=== PATIENT | female | born 1940 | race African-American/Black ===

== ENCOUNTER 2021-04-02 14:33 | Inpatient (IN) | payer OTHER ==
[2021-04-02 18:50] LABS: HEMATOCRIT 40.7 % (32.4-45.2); HEMOGLOBIN 13.3 GM/dL (10.7-15.3); MCHC 32.7 g/dl (32.0-36.0); MEAN PLT VOLUME 9.4 fl (7.5-11.1); PLATELET COUNT 135 10^3/uL (134-434); WHITE BLOOD COUNT 5.8 K/mm3 (4.0-10.0)
[2021-04-02 19:09] LABS: ALBUMIN 2.9 g/dl (3.4-5.0); BLOOD UREA NITROGEN 32.6 mg/dL (7-18); CALCIUM 8.9 mg/dL (8.5-10.1)
[2021-04-02 19:13] LABS: BILIRUBIN,TOTAL 0.3 mg/dL (0.2-1); CREATININE 1.7 mg/dL (0.55-1.3); TOT PROT 5.6 g/dl (6.4-8.2)
[2021-04-02 21:49] LABS: ANISOCYTOSIS 3+; MACROCYTOSIS 3+; OVALOCYTE 2+; PLATELET ESTIMATE DECREASED; TARGET CELLS 1+
[2021-04-03] MEDS ORDERED: ALBUTEROL SO4 2.5/IPRATROPIUM 0.5 INH SOL 3 ML VIAL.NEB. NEB PRN (00:56)
[2021-04-03] MEDS ORDERED: AZITHROMYCIN IVPB 500 MG/250 ML BAG IVPB ONE ×2 (00:58→02:13)
[2021-04-03] MEDS: methylPREDNISolone NA SUCC 40 MG/1 ML VIAL IVPUSH SCH ×4 (02:38→17:35)
[2021-04-03] MEDS: BUDESONIDE/FORMETEROL FUMARATE 160/4.5 mcg INHALER IH SCH ×3 (02:39→21:24)
[2021-04-03] MEDS: ALBUTEROL SO4 2.5/IPRATROPIUM 0.5 INH SOL 3 ML VIAL.NEB. NEB SCH ×3 (02:42→03:31)
[2021-04-03 03:28] LABS: EPI CELLS >36 /uL (0-25.1); HYALINE CASTS 3 /uL (0-3.1); URINE APPEARANCE CLOUDY; URINE BACTERIA 878 /uL (0-1359); URINE BILIRUBIN NEGATIVE (NEGATIVE); URINE COLOR YELLOW; URINE GLUCOSE (UA) NEGATIVE (NEGATIVE); URINE KETONE NEGATIVE (NEGATIVE); URINE LEUK ESTERASE 1+ (NEGATIVE); URINE NITRITE NEGATIVE (NEGATIVE); URINE PROTEIN NEGATIVE (NEGATIVE); URINE RBC 18 /uL (0-23.9); URINE UROBILINOGEN 0.2 mg/dL (0.2-1.0); URINE WBC 43 /uL (0-25.8)
[2021-04-03] MEDS ORDERED: ACETAMINOPHEN 1000 MG/100 ML VIAL IVPB PRN (03:46)
[2021-04-03] MEDS ORDERED: SODIUM CHLORIDE 1,000 ML IV SCH (04:00)
[2021-04-03] MEDS: HEPARIN NA (PORCINE) 5,000 UNITS/ML 1ML VIAL SQ SCH ×3 (08:50→21:24)
[2021-04-03] MEDS ORDERED: HEPARIN NA (PORCINE) 5,000 UNITS/ML 1ML VIAL ONE (08:51)
[2021-04-03] MEDS ORDERED: AZITHROMYCIN IVPB 250 MG/125 ML BAG IVPB SCH (10:00)
[2021-04-03] MEDS ORDERED: NICOTINE 14 MG/24 HOURS TOPICAL PATCH TD SCH (10:00)
[2021-04-03] MEDS ORDERED: AZITHROMYCIN IVPB 500 MG/250 ML BAG IVPB SCH (10:00)
[2021-04-03] MEDS: amLODIPine BESYLATE 2.5 MG TABLET (FP) PO SCH ×2 (11:09→11:15)
[2021-04-03] MEDS ORDERED: AZITHROMYCIN IVPB SCH (11:21)
[2021-04-03] MEDS ORDERED: DEXTROSE 5% IVPB SCH (11:21)
[2021-04-03] MEDS ORDERED: WATER IVPB SCH (11:21)
[2021-04-03] MEDS: DEXTROSE 5% IVPB SCH (11:57)
[2021-04-03] MEDS: AZITHROMYCIN IVPB SCH (11:57)
[2021-04-03] MEDS: WATER IVPB SCH (11:57)
[2021-04-03] MEDS: PANTOPRAZOLE 40 MG TABLET PO SCH (11:59)
[2021-04-03] MEDS: ASPIRIN/DIPYRIDAMOLE 25 MG/200 MG CAPSULE PO SCH ×2 (11:59→21:24)
[2021-04-03] MEDS ORDERED: PT OWN MED DRAWER 7, Y5N ONE ×2 (12:14→21:07)
[2021-04-03 13:35] LABS: ALBUMIN 2.8 g/dl (3.4-5.0); BLOOD UREA NITROGEN 27.9 mg/dL (7-18); CALCIUM 8.4 mg/dL (8.5-10.1); CREATININE 1.6 mg/dL (0.55-1.3); MAGNESIUM 2.2 mg/dL (1.8-2.4); PHOSPHOROUS 2.7 mg/dL (2.5-4.9); TOT PROT 5.4 g/dl (6.4-8.2)
[2021-04-03 13:36] LABS: BILIRUBIN,TOTAL 0.2 mg/dL (0.2-1)
[2021-04-03] MEDS ORDERED: ALBUTEROL SO4 0.083% IH SOL 2.5 MG/3 ML VIAL.NEB. NEB PRN (16:14)
[2021-04-03] MEDS: ZINC OXIDE/PETROLATUM,WHITE 1 APPLIC OINT...G. TP PRN (17:50)
[2021-04-04] MEDS: methylPREDNISolone NA SUCC 40 MG/1 ML VIAL IVPUSH SCH ×4 (02:09→21:09)
[2021-04-04] MEDS: HEPARIN NA (PORCINE) 5,000 UNITS/ML 1ML VIAL SQ SCH ×3 (05:21→21:08)
[2021-04-04 08:44] LABS: HEMATOCRIT 38.9 % (32.4-45.2); HEMOGLOBIN 12.8 GM/dL (10.7-15.3); MCH 37.2 pg (25.7-33.7); MCHC 32.8 g/dl (32.0-36.0); MEAN CELL VOLUME 113.4 fl (80-96); MEAN PLT VOLUME 8.7 fl (7.5-11.1); PLATELET COUNT 145 10^3/uL (134-434); RBC 3.43 M/mm3 (3.60-5.2); RDW 19.4 % (11.6-15.6); WHITE BLOOD COUNT 14.6 K/mm3 (4.0-10.0)
[2021-04-04 09:31] LABS: ANISOCYTOSIS 2+; MACROCYTOSIS 2+; PLATELET ESTIMATE DECREASED
[2021-04-04] MEDS ORDERED: WATER IVPB SCH (10:00)
[2021-04-04] MEDS ORDERED: AZITHROMYCIN IVPB SCH (10:00)
[2021-04-04] MEDS ORDERED: DEXTROSE 5% IVPB SCH (10:00)
[2021-04-04] MEDS ORDERED: PT OWN MED DRAWER 7, Y5N ONE ×3 (10:04→21:03)
[2021-04-04] MEDS: amLODIPine BESYLATE 2.5 MG TABLET (FP) PO SCH (10:07)
[2021-04-04] MEDS: ASPIRIN/DIPYRIDAMOLE 25 MG/200 MG CAPSULE PO SCH ×2 (10:07→21:07)
[2021-04-04] MEDS: PANTOPRAZOLE 40 MG TABLET PO SCH (10:07)
[2021-04-04] MEDS: FLUTICASONE/UMECLIDIN/VILANTER(200-62.5-25 TRELEGY ELLIPTA) INAHLER IH SCH (10:23)
[2021-04-04] MEDS: ZINC OXIDE/PETROLATUM,WHITE 1 APPLIC OINT...G. TP PRN (10:33)
[2021-04-04] MEDS: WATER IVPB SCH (10:51)
[2021-04-04] MEDS: DEXTROSE 5% IVPB SCH (10:51)
[2021-04-04] MEDS: AZITHROMYCIN IVPB SCH (10:51)
[2021-04-04 12:23] LABS: ALBUMIN 2.6 g/dl (3.4-5.0); BILIRUBIN,TOTAL 0.4 mg/dL (0.2-1); BLOOD UREA NITROGEN 24.5 mg/dL (7-18); CALCIUM 8.6 mg/dL (8.5-10.1); CREATININE 1.3 mg/dL (0.55-1.3); MAGNESIUM 2.3 mg/dL (1.8-2.4); TOT PROT 5.2 g/dl (6.4-8.2)
[2021-04-04] MEDS ORDERED: DEXTROSE 5%-WATER - 50 ML IVPB ONE (13:20)
[2021-04-04] MEDS ORDERED: cefTRIAXone SODIUM 1 GM VIAL ONE (13:20)
[2021-04-04] MEDS: CEFTRIAXONE 1 GM in DEXTROSE 5%-WATER - 50 ML IVPB SCH (13:21)
[2021-04-04] MEDS: INSULIN SLIDING SCALE (NOVOLOG) 1 VIAL SQ SCH ×2 (15:38→21:45)
[2021-04-05] MEDS: methylPREDNISolone NA SUCC 40 MG/1 ML VIAL IVPUSH SCH ×4 (03:15→21:03)
[2021-04-05] MEDS: HEPARIN NA (PORCINE) 5,000 UNITS/ML 1ML VIAL SQ SCH ×3 (05:55→21:04)
[2021-04-05] MEDS: INSULIN SLIDING SCALE (NOVOLOG) 1 VIAL SQ SCH ×4 (06:01→21:15)
[2021-04-05 08:50] LABS: HEMATOCRIT 38.5 % (32.4-45.2); HEMOGLOBIN 12.7 GM/dL (10.7-15.3); MEAN CELL VOLUME 112.1 fl (80-96); MEAN PLT VOLUME 9.6 fl (7.5-11.1); PLATELET COUNT 179 10^3/uL (134-434); RBC 3.43 M/mm3 (3.60-5.2); RDW 19.7 % (11.6-15.6); WHITE BLOOD COUNT 23.8 K/mm3 (4.0-10.0)
[2021-04-05] MEDS ORDERED: cefTRIAXone SODIUM 1 GM VIAL ONE (10:03)
[2021-04-05] MEDS ORDERED: DEXTROSE 5%-WATER - 50 ML IVPB ONE (10:04)
[2021-04-05] MEDS: PANTOPRAZOLE 40 MG TABLET PO SCH (10:11)
[2021-04-05] MEDS: amLODIPine BESYLATE 2.5 MG TABLET (FP) PO SCH (10:11)
[2021-04-05] MEDS: ASPIRIN/DIPYRIDAMOLE 25 MG/200 MG CAPSULE PO SCH ×2 (10:12→21:06)
[2021-04-05] MEDS: FLUTICASONE/UMECLIDIN/VILANTER(200-62.5-25 TRELEGY ELLIPTA) INAHLER IH SCH (10:12)
[2021-04-05] MEDS: CEFTRIAXONE 1 GM in DEXTROSE 5%-WATER - 50 ML IVPB SCH (10:12)
[2021-04-05 10:35] LABS: ALBUMIN 2.7 g/dl (3.4-5.0); BILIRUBIN,TOTAL 0.3 mg/dL (0.2-1); BLOOD UREA NITROGEN 28.8 mg/dL (7-18); CALCIUM 8.9 mg/dL (8.5-10.1); CREATININE 1.4 mg/dL (0.55-1.3); MAGNESIUM 2.3 mg/dL (1.8-2.4); TOT PROT 5.3 g/dl (6.4-8.2)
[2021-04-05 10:43] LABS: ANISOCYTOSIS 2+; MACROCYTOSIS 0; OVALOCYTE 1+; PLATELET ESTIMATE NORMAL; TARGET CELLS 2+
[2021-04-05] MEDS ORDERED: INSULIN (NOVOLOG) ASPART 100 UNITS/ML 10ML VIAL ONE (13:22)
[2021-04-05] MEDS ORDERED: PT OWN MED DRAWER 7, Y5N ONE (20:54)
[2021-04-06] MEDS: methylPREDNISolone NA SUCC 40 MG/1 ML VIAL IVPUSH SCH ×4 (02:31→21:16)
[2021-04-06] MEDS: HEPARIN NA (PORCINE) 5,000 UNITS/ML 1ML VIAL SQ SCH ×3 (05:26→21:16)
[2021-04-06] MEDS: INSULIN SLIDING SCALE (NOVOLOG) 1 VIAL SQ SCH ×4 (06:03→21:21)
[2021-04-06] MEDS ORDERED: PT OWN MED DRAWER 7, Y5N ONE ×4 (10:08→21:13)
[2021-04-06] MEDS ORDERED: DEXTROSE 5%-WATER - 50 ML IVPB ONE (10:09)
[2021-04-06] MEDS ORDERED: cefTRIAXone SODIUM 1 GM VIAL ONE (10:09)
[2021-04-06] MEDS: amLODIPine BESYLATE 2.5 MG TABLET (FP) PO SCH (10:11)
[2021-04-06] MEDS: CEFTRIAXONE 1 GM in DEXTROSE 5%-WATER - 50 ML IVPB SCH (10:11)
[2021-04-06] MEDS: ASPIRIN/DIPYRIDAMOLE 25 MG/200 MG CAPSULE PO SCH ×2 (10:11→21:16)
[2021-04-06] MEDS: FLUTICASONE/UMECLIDIN/VILANTER(200-62.5-25 TRELEGY ELLIPTA) INAHLER IH SCH (10:11)
[2021-04-06] MEDS: PANTOPRAZOLE 40 MG TABLET PO SCH (10:11)
[2021-04-06] MEDS ORDERED: POLYETHYLENE GLYCOL 3350 119 GM BTL PO SCH (11:00)
[2021-04-06 11:31] LABS: HEMATOCRIT 35.4 % (32.4-45.2); HEMOGLOBIN 11.5 GM/dL (10.7-15.3); MCH 36.1 pg (25.7-33.7); MCHC 32.4 g/dl (32.0-36.0); MEAN CELL VOLUME 111.4 fl (80-96); MEAN PLT VOLUME 9.3 fl (7.5-11.1); PLATELET COUNT 173 10^3/uL (134-434); RBC 3.18 M/mm3 (3.60-5.2)
[2021-04-06] MEDS: POLYETHYLENE GLYCOL (HEALTHYLAX) 3350 17 GM PACKET PO SCH (11:58)
[2021-04-06] MEDS ORDERED: PATIENT'S OWN MEDICATION (NON-FORMULARY) (Raloxifene Hcl [Raloxifene Hcl] 60 MG Tablet) PO SCH (12:45)
[2021-04-06] MEDS: FOLIC ACID 1 MG TABLET (FP) PO SCH (13:37)
[2021-04-06] MEDS: CHOLECALCIFEROL (VIT D3) 1,000 UNIT (25 MCG) TABLET PO SCH (13:37)
[2021-04-06] MEDS: DOCUSATE SODIUM 100 MG CAPSULE (FP) PO SCH ×2 (13:37→21:16)
[2021-04-06 14:10] LABS: ALBUMIN 2.3 g/dl (3.4-5.0); BILIRUBIN,TOTAL 0.2 mg/dL (0.2-1); BLOOD UREA NITROGEN 47.5 mg/dL (7-18); CALCIUM 8.8 mg/dL (8.5-10.1); CREATININE 1.5 mg/dL (0.55-1.3); MAGNESIUM 2.3 mg/dL (1.8-2.4); TOT PROT 4.8 g/dl (6.4-8.2)
[2021-04-06 15:04] LABS: ANISOCYTOSIS 1+; MACROCYTOSIS 0; OVALOCYTE 1+; PLATELET ESTIMATE NORMAL; TARGET CELLS 1+
[2021-04-06] MEDS ORDERED: LATANOPROST 0.005% OPHTH SOLN 2.5ML BOTTLE OU SCH (22:00)
[2021-04-06] MEDS: LATANOPROST 0.005% OPHTH SOLN 2.5ML BOTTLE OU SCH (22:00)
[2021-04-07] MEDS: methylPREDNISolone NA SUCC 40 MG/1 ML VIAL IVPUSH SCH ×4 (02:08→22:11)
[2021-04-07] MEDS: DOCUSATE SODIUM 100 MG CAPSULE (FP) PO SCH ×3 (05:37→22:12)
[2021-04-07] MEDS: HEPARIN NA (PORCINE) 5,000 UNITS/ML 1ML VIAL SQ SCH ×3 (05:37→22:11)
[2021-04-07] MEDS: INSULIN SLIDING SCALE (NOVOLOG) 1 VIAL SQ SCH ×4 (06:04→22:22)
[2021-04-07] MEDS ORDERED: DEXTROSE 5%-WATER - 50 ML IVPB ONE ×2 (10:03→18:20)
[2021-04-07] MEDS ORDERED: cefTRIAXone SODIUM 1 GM VIAL ONE (10:03)
[2021-04-07] MEDS: FOLIC ACID 1 MG TABLET (FP) PO SCH (10:06)
[2021-04-07] MEDS: CHOLECALCIFEROL (VIT D3) 1,000 UNIT (25 MCG) TABLET PO SCH (10:06)
[2021-04-07] MEDS: PANTOPRAZOLE 40 MG TABLET PO SCH (10:06)
[2021-04-07] MEDS: CEFTRIAXONE 1 GM in DEXTROSE 5%-WATER - 50 ML IVPB SCH (10:06)
[2021-04-07] MEDS: amLODIPine BESYLATE 2.5 MG TABLET (FP) PO SCH (10:06)
[2021-04-07] MEDS: POLYETHYLENE GLYCOL (HEALTHYLAX) 3350 17 GM PACKET PO SCH (10:06)
[2021-04-07] MEDS: ASPIRIN/DIPYRIDAMOLE 25 MG/200 MG CAPSULE PO SCH ×2 (10:07→22:13)
[2021-04-07] MEDS: PATIENT'S OWN MEDICATION (NON-FORMULARY) (Raloxifene Hcl [Raloxifene Hcl] 60 MG Tablet) PO SCH (10:07)
[2021-04-07] MEDS: FLUTICASONE/UMECLIDIN/VILANTER(200-62.5-25 TRELEGY ELLIPTA) INAHLER IH SCH (10:07)
[2021-04-07 11:59] LABS: HEMATOCRIT 35.8 % (32.4-45.2); HEMOGLOBIN 11.5 GM/dL (10.7-15.3); MCH 36.2 pg (25.7-33.7); MCHC 32.3 g/dl (32.0-36.0); MEAN CELL VOLUME 112.1 fl (80-96); MEAN PLT VOLUME 9.6 fl (7.5-11.1); PLATELET COUNT 174 10^3/uL (134-434); RBC 3.19 M/mm3 (3.60-5.2)
[2021-04-07] MEDS ORDERED: LACTATED RINGERS SOLUTION 1,000 ML/1,000 ML INFUS.BAG IV SCH (12:00)
[2021-04-07] MEDS ORDERED: ALBUTEROL SO4 2.5/IPRATROPIUM 0.5 INH SOL 3 ML VIAL.NEB. NEB SCH (12:00)
[2021-04-07 12:04] LABS: WHITE BLOOD COUNT 31.3 K/mm3 (4.0-10.0)
[2021-04-07 12:19] LABS: CALCIUM 8.9 mg/dL (8.5-10.1)
[2021-04-07 12:20] LABS: ALBUMIN 2.4 g/dl (3.4-5.0); BLOOD UREA NITROGEN 48.7 mg/dL (7-18); MAGNESIUM 2.5 mg/dL (1.8-2.4)
[2021-04-07 12:23] LABS: CREATININE 1.5 mg/dL (0.55-1.3)
[2021-04-07 12:25] LABS: BILIRUBIN,TOTAL 0.2 mg/dL (0.2-1); TOT PROT 4.9 g/dl (6.4-8.2)
[2021-04-07 13:46] LABS: ANISOCYTOSIS 3+; MACROCYTOSIS 2+; OVALOCYTE 1+; PLATELET ESTIMATE NORMAL
[2021-04-07 15:33] LABS: LACTIC ACID 5.1 mmol/L (0.4-2.0)
[2021-04-07] MEDS ORDERED: SODIUM CHLORIDE 1,000 ML IV STA (15:53)
[2021-04-07] MEDS: ALBUTEROL SO4 0.083% IH SOL 2.5 MG/3 ML VIAL.NEB. NEB SCH ×2 (16:15→20:05)
[2021-04-07] MEDS ORDERED: PIPERACILLIN/TAZOB 2.25 GM 2.25 GM in DEXTROSE 5%-WATER - 50 ML IVPB ONE (16:44)
[2021-04-07] MEDS ORDERED: PIPERACILLIN/TAZOBACTAM 2.25 GM VIAL IVPB ONE (18:20)
[2021-04-07] MEDS ORDERED: PT OWN MED DRAWER 7, Y5N ONE (22:05)
[2021-04-07] MEDS: LATANOPROST 0.005% OPHTH SOLN 2.5ML BOTTLE OU SCH (22:12)
[2021-04-07 23:54] LABS: LACTIC ACID 3.9 mmol/L (0.4-2.0)
[2021-04-08] MEDS: methylPREDNISolone NA SUCC 40 MG/1 ML VIAL IVPUSH SCH ×3 (02:55→18:35)
[2021-04-08] MEDS: HEPARIN NA (PORCINE) 5,000 UNITS/ML 1ML VIAL SQ SCH (06:26)
[2021-04-08] MEDS: DOCUSATE SODIUM 100 MG CAPSULE (FP) PO SCH ×3 (06:26→22:48)
[2021-04-08] MEDS: INSULIN SLIDING SCALE (NOVOLOG) 1 VIAL SQ SCH ×4 (06:27→22:58)
[2021-04-08] MEDS: ALBUTEROL SO4 0.083% IH SOL 2.5 MG/3 ML VIAL.NEB. NEB SCH ×3 (07:35→15:19)
[2021-04-08] MEDS ORDERED: cefTRIAXone SODIUM 1 GM VIAL ONE (09:40)
[2021-04-08] MEDS ORDERED: DEXTROSE 5%-WATER - 50 ML IVPB ONE (09:40)
[2021-04-08] MEDS: CHOLECALCIFEROL (VIT D3) 1,000 UNIT (25 MCG) TABLET PO SCH (09:43)
[2021-04-08] MEDS: PANTOPRAZOLE 40 MG TABLET PO SCH (09:43)
[2021-04-08] MEDS: ASPIRIN/DIPYRIDAMOLE 25 MG/200 MG CAPSULE PO SCH (09:43)
[2021-04-08] MEDS: FOLIC ACID 1 MG TABLET (FP) PO SCH (09:43)
[2021-04-08] MEDS: amLODIPine BESYLATE 2.5 MG TABLET (FP) PO SCH (09:43)
[2021-04-08] MEDS: CEFTRIAXONE 1 GM in DEXTROSE 5%-WATER - 50 ML IVPB SCH (09:43)
[2021-04-08] MEDS: PATIENT'S OWN MEDICATION (NON-FORMULARY) (Raloxifene Hcl [Raloxifene Hcl] 60 MG Tablet) PO SCH (09:43)
[2021-04-08] MEDS: POLYETHYLENE GLYCOL (HEALTHYLAX) 3350 17 GM PACKET PO SCH (09:50)
[2021-04-08] MEDS: FLUTICASONE/UMECLIDIN/VILANTER(200-62.5-25 TRELEGY ELLIPTA) INAHLER IH SCH (09:50)
[2021-04-08 10:50] LABS: ALBUMIN 2.3 g/dl (3.4-5.0); BILIRUBIN,TOTAL 0.2 mg/dL (0.2-1); BLOOD UREA NITROGEN 43.6 mg/dL (7-18); CALCIUM 8.8 mg/dL (8.5-10.1); CREATININE 1.7 mg/dL (0.55-1.3); MAGNESIUM 2.5 mg/dL (1.8-2.4); TOT PROT 4.7 g/dl (6.4-8.2)
[2021-04-08 11:11] LABS: HEMATOCRIT 33.9 % (32.4-45.2); MCH 36.4 pg (25.7-33.7); MCHC 32.4 g/dl (32.0-36.0); MEAN CELL VOLUME 112.4 fl (80-96); MEAN PLT VOLUME 9.9 fl (7.5-11.1); PLATELET COUNT 165 10^3/uL (134-434); RBC 3.02 M/mm3 (3.60-5.2); RDW 20.4 % (11.6-15.6)
[2021-04-08 11:15] LABS: WHITE BLOOD COUNT 32.5 K/mm3 (4.0-10.0)
[2021-04-08] MEDS ORDERED: FUROSEMIDE 40 MG/4 ML INJECTABLE VIAL IVPUSH SCH (11:30)
[2021-04-08] MEDS ORDERED: PANTOPRAZOLE SODIUM 40 MG in SODIUM CHLORIDE 100 ML IVPUSH ONE (11:36)
[2021-04-08] MEDS ORDERED: SODIUM CHLORIDE 1,000 ML IV SCH (11:45)
[2021-04-08] MEDS ORDERED: PANTOPRAZOLE SODIUM 40 MG VIAL IVPB ONE (11:45)
[2021-04-08] MEDS: SODIUM ZIRCONIUM CYCLOSILICATE (LOKELMA) 5 GM PACKET PO SCH (12:00)
[2021-04-08 12:31] LABS: ANISOCYTOSIS 3+; MACROCYTOSIS 2+; PLATELET ESTIMATE NORMAL
[2021-04-08 14:39] LABS: HEMATOCRIT 30.7 % (32.4-45.2); HEMOGLOBIN 9.9 GM/dL (10.7-15.3); MCH 36.2 pg (25.7-33.7); MCHC 32.3 g/dl (32.0-36.0); MEAN CELL VOLUME 112.1 fl (80-96); MEAN PLT VOLUME 9.6 fl (7.5-11.1); PLATELET COUNT 145 10^3/uL (134-434); RBC 2.74 M/mm3 (3.60-5.2); RDW 20.1 % (11.6-15.6); WHITE BLOOD COUNT 28.2 K/mm3 (4.0-10.0)
[2021-04-08 14:52] LABS: CALCIUM 7.5 mg/dL (8.5-10.1)
[2021-04-08 14:53] LABS: BLOOD UREA NITROGEN 39.5 mg/dL (7-18); MAGNESIUM 2.1 mg/dL (1.8-2.4)
[2021-04-08 14:56] LABS: CREATININE 1.5 mg/dL (0.55-1.3)
[2021-04-08 14:57] LABS: BILIRUBIN,TOTAL 0.2 mg/dL (0.2-1); TOT PROT 4.2 g/dl (6.4-8.2)
[2021-04-08 15:02] LABS: ALBUMIN 1.8 g/dl (3.4-5.0); LACTIC ACID 4.6 mmol/L (0.4-2.0)
[2021-04-08 15:57] LABS: ANISOCYTOSIS 1+; MACROCYTOSIS 1+; OVALOCYTE 1+; PLATELET ESTIMATE DECREASED
[2021-04-08 18:27] LABS: EPI CELLS >36 /uL (0-25.1); HYALINE CASTS 4 /uL (0-3.1); URINE APPEARANCE CLOUDY; URINE BACTERIA 150 /uL (0-1359); URINE BILIRUBIN NEGATIVE (NEGATIVE); URINE COLOR YELLOW; URINE GLUCOSE (UA) NEGATIVE (NEGATIVE); URINE KETONE NEGATIVE (NEGATIVE); URINE LEUK ESTERASE 2+ (NEGATIVE); URINE NITRITE NEGATIVE (NEGATIVE); URINE PROTEIN NEGATIVE (NEGATIVE); URINE RBC 27 /uL (0-23.9); URINE UROBILINOGEN 0.2 mg/dL (0.2-1.0); URINE WBC 316 /uL (0-25.8)
[2021-04-08] MEDS: PANTOPRAZOLE SODIUM 80 MG in SODIUM CHLORIDE 100 ML IVPB SCH ×2 (18:35→21:45)
[2021-04-08 19:15] LABS: YEAST MANY (NEGATIVE)
[2021-04-08] MEDS: SODIUM CHLORIDE 0.45% 1,000 ML IV SCH (21:44)
[2021-04-08] MEDS ORDERED: MUPIROCIN 2% TOPICAL OINTMENT FOR DECOLONIZATION NS SCH (22:00)
[2021-04-08] MEDS ORDERED: CHLORHEXIDINE GLUCONATE 4% CLEANSER FOR DECOLONIZATION TP SCH (22:00)
[2021-04-08 22:22] LABS: HEMATOCRIT 31.3 % (32.4-45.2); HEMOGLOBIN 10.1 GM/dL (10.7-15.3); MCH 36.3 pg (25.7-33.7); MCHC 32.4 g/dl (32.0-36.0); MEAN CELL VOLUME 112.1 fl (80-96); MEAN PLT VOLUME 9.7 fl (7.5-11.1); PLATELET COUNT 150 10^3/uL (134-434); RBC 2.79 M/mm3 (3.60-5.2); RDW 20.4 % (11.6-15.6); WHITE BLOOD COUNT 29.2 K/mm3 (4.0-10.0)
[2021-04-08 22:29] LABS: INR 1.01 (0.83-1.09); PROTHROMBIN TIME (PATIENT) 11.8 SEC (9.7-13.0)
[2021-04-08 22:40] LABS: BLOOD UREA NITROGEN 44.8 mg/dL (7-18); MAGNESIUM 2.6 mg/dL (1.8-2.4)
[2021-04-08 22:43] LABS: CREATININE 1.6 mg/dL (0.55-1.3)
[2021-04-08 22:45] LABS: BILIRUBIN,TOTAL 0.2 mg/dL (0.2-1); TOT PROT 4.5 g/dl (6.4-8.2)
[2021-04-08] MEDS: CHLORHEXIDINE GLUCONATE 4% CLEANSER FOR DECOLONIZATION TP SCH (22:45)
[2021-04-08] MEDS: MUPIROCIN 2% TOPICAL OINTMENT FOR DECOLONIZATION NS SCH (22:45)
[2021-04-08] MEDS: LATANOPROST 0.005% OPHTH SOLN 2.5ML BOTTLE OU SCH (22:52)
[2021-04-08 22:59] LABS: ALBUMIN 2.2 g/dl (3.4-5.0); CALCIUM 8.7 mg/dL (8.5-10.1); LACTIC ACID 3.4 mmol/L (0.4-2.0)
[2021-04-09] MEDS: ALBUTEROL SO4 0.083% IH SOL 2.5 MG/3 ML VIAL.NEB. NEB SCH ×5 (00:39→19:55)
[2021-04-09] MEDS: methylPREDNISolone NA SUCC 40 MG/1 ML VIAL IVPUSH SCH ×3 (01:08→17:02)
[2021-04-09] MEDS: DOCUSATE SODIUM 100 MG CAPSULE (FP) PO SCH ×3 (06:19→21:18)
[2021-04-09] MEDS: INSULIN SLIDING SCALE (NOVOLOG) 1 VIAL SQ SCH ×4 (06:20→21:26)
[2021-04-09] MEDS: PANTOPRAZOLE SODIUM 80 MG in SODIUM CHLORIDE 100 ML IVPB SCH (06:21)
[2021-04-09 07:44] LABS: HEMATOCRIT 29.9 % (32.4-45.2); HEMOGLOBIN 9.9 GM/dL (10.7-15.3); MCH 37.4 pg (25.7-33.7); MEAN CELL VOLUME 113.5 fl (80-96); MEAN PLT VOLUME 10.8 fl (7.5-11.1); PLATELET COUNT 130 10^3/uL (134-434); RBC 2.63 M/mm3 (3.60-5.2); RDW 20.8 % (11.6-15.6); WHITE BLOOD COUNT 27.4 K/mm3 (4.0-10.0)
[2021-04-09 08:37] LABS: CALCIUM 8.3 mg/dL (8.5-10.1)
[2021-04-09 08:38] LABS: ALBUMIN 2.2 g/dl (3.4-5.0); BLOOD UREA NITROGEN 41.3 mg/dL (7-18); MAGNESIUM 2.5 mg/dL (1.8-2.4)
[2021-04-09 08:41] LABS: BILIRUBIN,TOTAL 0.2 mg/dL (0.2-1); CREATININE 1.5 mg/dL (0.55-1.3); TOT PROT 4.5 g/dl (6.4-8.2)
[2021-04-09 09:00] LABS: ANISOCYTOSIS 1+; MACROCYTOSIS 0; OVALOCYTE 1+; PLATELET ESTIMATE DECREASED; TOXIC GRANULATION 2+
[2021-04-09] MEDS ORDERED: cefTRIAXone SODIUM 1 GM VIAL ONE (09:37)
[2021-04-09] MEDS ORDERED: DEXTROSE 5%-WATER - 50 ML IVPB ONE (09:37)
[2021-04-09] MEDS: FOLIC ACID 1 MG TABLET (FP) PO SCH (10:02)
[2021-04-09] MEDS: POLYETHYLENE GLYCOL (HEALTHYLAX) 3350 17 GM PACKET PO SCH (10:02)
[2021-04-09] MEDS: PANTOPRAZOLE 40 MG TABLET PO SCH ×2 (10:03→21:18)
[2021-04-09] MEDS: SODIUM ZIRCONIUM CYCLOSILICATE (LOKELMA) 5 GM PACKET PO SCH (10:03)
[2021-04-09] MEDS: CEFTRIAXONE 1 GM in DEXTROSE 5%-WATER - 50 ML IVPB SCH (10:03)
[2021-04-09] MEDS: CHOLECALCIFEROL (VIT D3) 1,000 UNIT (25 MCG) TABLET PO SCH (10:04)
[2021-04-09] MEDS: MULTIVITAMINS (DAILY MVI) TABLET (FP) PO SCH (10:04)
[2021-04-09] MEDS: MUPIROCIN 2% TOPICAL OINTMENT FOR DECOLONIZATION NS SCH ×2 (10:19→21:19)
[2021-04-09] MEDS ORDERED: PT OWN MED DRAWER 7, Y5N ONE ×2 (11:17→11:26)
[2021-04-09] MEDS: FLUTICASONE/UMECLIDIN/VILANTER(200-62.5-25 TRELEGY ELLIPTA) INAHLER IH SCH (11:19)
[2021-04-09] MEDS: amLODIPine BESYLATE 2.5 MG TABLET (FP) PO SCH (11:19)
[2021-04-09] MEDS: PATIENT'S OWN MEDICATION (NON-FORMULARY) (Raloxifene Hcl [Raloxifene Hcl] 60 MG Tablet) PO SCH (11:19)
[2021-04-09] MEDS: SODIUM CHLORIDE 0.45% 1,000 ML IV SCH ×2 (17:02→21:19)
[2021-04-09] MEDS: CHLORHEXIDINE GLUCONATE 4% CLEANSER FOR DECOLONIZATION TP SCH (21:19)
[2021-04-09] MEDS: LATANOPROST 0.005% OPHTH SOLN 2.5ML BOTTLE OU SCH (21:25)
[2021-04-10] MEDS: PANTOPRAZOLE SODIUM 80 MG in SODIUM CHLORIDE 100 ML IVPB SCH (00:13)
[2021-04-10] MEDS: methylPREDNISolone NA SUCC 40 MG/1 ML VIAL IVPUSH SCH ×3 (01:23→22:07)
[2021-04-10] MEDS: INSULIN SLIDING SCALE (NOVOLOG) 1 VIAL SQ SCH ×4 (06:10→22:13)
[2021-04-10] MEDS: DOCUSATE SODIUM 100 MG CAPSULE (FP) PO SCH ×4 (06:12→22:16)
[2021-04-10 07:10] LABS: HEMATOCRIT 27.4 % (32.4-45.2); MCH 36.8 pg (25.7-33.7); MCHC 32.8 g/dl (32.0-36.0); MEAN CELL VOLUME 112.2 fl (80-96); MEAN PLT VOLUME 10.3 fl (7.5-11.1); PLATELET COUNT 128 10^3/uL (134-434); RBC 2.44 M/mm3 (3.60-5.2); RDW 20.1 % (11.6-15.6); WHITE BLOOD COUNT 21.7 K/mm3 (4.0-10.0)
[2021-04-10 07:28] LABS: BLOOD UREA NITROGEN 31.2 mg/dL (7-18); CALCIUM 7.9 mg/dL (8.5-10.1); MAGNESIUM 2.5 mg/dL (1.8-2.4)
[2021-04-10 07:31] LABS: CREATININE 1.2 mg/dL (0.55-1.3); PHOSPHOROUS 3.6 mg/dL (2.5-4.9)
[2021-04-10 07:32] LABS: BILIRUBIN,TOTAL 0.2 mg/dL (0.2-1)
[2021-04-10 07:33] LABS: TOT PROT 4.3 g/dl (6.4-8.2)
[2021-04-10] MEDS: ALBUTEROL SO4 0.083% IH SOL 2.5 MG/3 ML VIAL.NEB. NEB SCH ×4 (08:34→20:20)
[2021-04-10 09:00] LABS: ANISOCYTOSIS 1+; MACROCYTOSIS 1+; OVALOCYTE 1+; PLATELET ESTIMATE DECREASED
[2021-04-10] MEDS ORDERED: cefTRIAXone SODIUM 1 GM VIAL ONE (09:30)
[2021-04-10] MEDS ORDERED: DEXTROSE 5%-WATER - 50 ML IVPB ONE (09:30)
[2021-04-10] MEDS: CEFTRIAXONE 1 GM in DEXTROSE 5%-WATER - 50 ML IVPB SCH (09:34)
[2021-04-10] MEDS: MUPIROCIN 2% TOPICAL OINTMENT FOR DECOLONIZATION NS SCH (10:00)
[2021-04-10] MEDS ORDERED: PT OWN MED DRAWER 7, Y5N ONE ×3 (11:45→12:09)
[2021-04-10] MEDS: FOLIC ACID 1 MG TABLET (FP) PO SCH (11:51)
[2021-04-10] MEDS: FLUTICASONE/UMECLIDIN/VILANTER(200-62.5-25 TRELEGY ELLIPTA) INAHLER IH SCH (11:51)
[2021-04-10] MEDS: CHOLECALCIFEROL (VIT D3) 1,000 UNIT (25 MCG) TABLET PO SCH (11:51)
[2021-04-10] MEDS: PATIENT'S OWN MEDICATION (NON-FORMULARY) (Raloxifene Hcl [Raloxifene Hcl] 60 MG Tablet) PO SCH (11:53)
[2021-04-10] MEDS: PANTOPRAZOLE 40 MG TABLET PO SCH (11:53)
[2021-04-10] MEDS: MULTIVITAMINS (DAILY MVI) TABLET (FP) PO SCH (11:53)
[2021-04-10] MEDS: SODIUM ZIRCONIUM CYCLOSILICATE (LOKELMA) 5 GM PACKET PO SCH (11:54)
[2021-04-10] MEDS: amLODIPine BESYLATE 2.5 MG TABLET (FP) PO SCH (11:54)
[2021-04-10] MEDS: POLYETHYLENE GLYCOL (HEALTHYLAX) 3350 17 GM PACKET PO SCH (11:56)
[2021-04-10] MEDS: SODIUM CHLORIDE 0.45% 1,000 ML IV SCH (15:00)
[2021-04-10] MEDS ORDERED: SODIUM CHLORIDE 0.45% 1,000 ML IV SCH (21:05)
[2021-04-10] MEDS ORDERED: ALBUTEROL SO4 0.083% IH SOL 2.5 MG/3 ML VIAL.NEB. NEB PRN (21:05)
[2021-04-10] MEDS ORDERED: ZINC OXIDE/PETROLATUM,WHITE 1 APPLIC OINT...G. TP PRN (21:05)
[2021-04-10] MEDS: LATANOPROST 0.005% OPHTH SOLN 2.5ML BOTTLE OU SCH (22:12)
[2021-04-11] MEDS: DOCUSATE SODIUM 100 MG CAPSULE (FP) PO SCH ×3 (06:06→21:12)
[2021-04-11] MEDS: INSULIN SLIDING SCALE (NOVOLOG) 1 VIAL SQ SCH ×4 (06:06→21:12)
[2021-04-11] MEDS ORDERED: cefTRIAXone SODIUM 1 GM VIAL ONE (08:17)
[2021-04-11] MEDS ORDERED: DEXTROSE 5%-WATER - 50 ML IVPB ONE (08:17)
[2021-04-11] MEDS: ALBUTEROL SO4 0.083% IH SOL 2.5 MG/3 ML VIAL.NEB. NEB SCH ×4 (08:20→21:29)
[2021-04-11] MEDS: SODIUM ZIRCONIUM CYCLOSILICATE (LOKELMA) 5 GM PACKET PO SCH (09:38)
[2021-04-11] MEDS: methylPREDNISolone NA SUCC 40 MG/1 ML VIAL IVPUSH SCH ×2 (09:39→21:11)
[2021-04-11] MEDS: CEFTRIAXONE 1 GM in DEXTROSE 5%-WATER - 50 ML IVPB SCH (09:39)
[2021-04-11] MEDS: CHOLECALCIFEROL (VIT D3) 1,000 UNIT (25 MCG) TABLET PO SCH (09:39)
[2021-04-11] MEDS: FUROSEMIDE 40 MG/4 ML INJECTABLE VIAL IVPUSH SCH (09:40)
[2021-04-11] MEDS: MULTIVITAMINS (DAILY MVI) TABLET (FP) PO SCH (09:41)
[2021-04-11] MEDS: amLODIPine BESYLATE 2.5 MG TABLET (FP) PO SCH (09:41)
[2021-04-11] MEDS: POLYETHYLENE GLYCOL (HEALTHYLAX) 3350 17 GM PACKET PO SCH (09:41)
[2021-04-11] MEDS: PANTOPRAZOLE 40 MG TABLET PO SCH (09:41)
[2021-04-11] MEDS: FOLIC ACID 1 MG TABLET (FP) PO SCH (09:41)
[2021-04-11] MEDS: PATIENT'S OWN MEDICATION (NON-FORMULARY) (Raloxifene Hcl [Raloxifene Hcl] 60 MG) PO SCH (09:44)
[2021-04-11] MEDS ORDERED: PT OWN MED DRAWER 7, Y5N ONE (13:05)
[2021-04-11] MEDS: FLUTICASONE/UMECLIDIN/VILANTER(200-62.5-25 TRELEGY ELLIPTA) INAHLER IH SCH (13:32)
[2021-04-11 14:07] LABS: THYROID STIM IMMUNOGLOBULIN <0.10 IU/L (0.00-0.55)
[2021-04-11 16:18] LABS: BASO % 0.4 % (0-2.0); EOS % 0.7 % (0-4.5); HEMATOCRIT 29.3 % (32.4-45.2); HEMOGLOBIN 9.7 GM/dL (10.7-15.3); LYMPH % 15.6 % (8-40); MCH 36.9 pg (25.7-33.7); MCHC 33.1 g/dl (32.0-36.0); MEAN CELL VOLUME 111.6 fl (80-96); MEAN PLT VOLUME 10.3 fl (7.5-11.1); NEUT % 73.3 % (42.8-82.8); PLATELET COUNT 141 10^3/uL (134-434); RBC 2.63 M/mm3 (3.60-5.2); RDW 20.6 % (11.6-15.6); WHITE BLOOD COUNT 19.8 K/mm3 (4.0-10.0)
[2021-04-11 16:42] LABS: ALBUMIN 2.2 g/dl (3.4-5.0); CALCIUM 8.4 mg/dL (8.5-10.1)
[2021-04-11 16:43] LABS: BLOOD UREA NITROGEN 27.9 mg/dL (7-18); MAGNESIUM 2.4 mg/dL (1.8-2.4)
[2021-04-11 16:45] LABS: CREATININE 1.4 mg/dL (0.55-1.3)
[2021-04-11 16:47] LABS: BILIRUBIN,TOTAL 0.1 mg/dL (0.2-1); TOT PROT 4.8 g/dl (6.4-8.2)
[2021-04-11 17:07] LABS: ANISOCYTOSIS 2+; MACROCYTOSIS 3+; OVALOCYTE 1+; PLATELET ESTIMATE DECREASED; TARGET CELLS 1+
[2021-04-11] MEDS: LATANOPROST 0.005% OPHTH SOLN 2.5ML BOTTLE OU SCH (21:12)
[2021-04-12] MEDS: DOCUSATE SODIUM 100 MG CAPSULE (FP) PO SCH ×3 (05:12→21:08)
[2021-04-12] MEDS: INSULIN SLIDING SCALE (NOVOLOG) 1 VIAL SQ SCH ×4 (06:08→21:13)
[2021-04-12 07:05] LABS: HEMATOCRIT 27.2 % (32.4-45.2); HEMOGLOBIN 8.9 GM/dL (10.7-15.3); MCH 36.8 pg (25.7-33.7); MCHC 32.7 g/dl (32.0-36.0); MEAN CELL VOLUME 112.5 fl (80-96); MEAN PLT VOLUME 9.9 fl (7.5-11.1); PLATELET COUNT 125 10^3/uL (134-434); RBC 2.42 M/mm3 (3.60-5.2); RDW 20.4 % (11.6-15.6); WHITE BLOOD COUNT 16.7 K/mm3 (4.0-10.0)
[2021-04-12 07:19] LABS: BLOOD UREA NITROGEN 25.4 mg/dL (7-18)
[2021-04-12 07:20] LABS: ALBUMIN 1.9 g/dl (3.4-5.0); MAGNESIUM 2.2 mg/dL (1.8-2.4)
[2021-04-12] MEDS: ALBUTEROL SO4 0.083% IH SOL 2.5 MG/3 ML VIAL.NEB. NEB SCH ×4 (07:20→20:10)
[2021-04-12 07:23] LABS: CREATININE 1.1 mg/dL (0.55-1.3)
[2021-04-12 07:24] LABS: BILIRUBIN,TOTAL 0.2 mg/dL (0.2-1); TOT PROT 4.5 g/dl (6.4-8.2)
[2021-04-12] MEDS ORDERED: DEXTROSE 5%-WATER - 50 ML IVPB ONE (07:46)
[2021-04-12] MEDS ORDERED: cefTRIAXone SODIUM 1 GM VIAL ONE (07:46)
[2021-04-12 09:21] LABS: ANISOCYTOSIS 2+; MACROCYTOSIS 2+; PLATELET ESTIMATE DECREASED
[2021-04-12] MEDS: MULTIVITAMINS (DAILY MVI) TABLET (FP) PO SCH (09:42)
[2021-04-12] MEDS: CHOLECALCIFEROL (VIT D3) 1,000 UNIT (25 MCG) TABLET PO SCH (09:42)
[2021-04-12] MEDS: POLYETHYLENE GLYCOL (HEALTHYLAX) 3350 17 GM PACKET PO SCH ×2 (09:42→09:52)
[2021-04-12] MEDS: amLODIPine BESYLATE 2.5 MG TABLET (FP) PO SCH (09:43)
[2021-04-12] MEDS: PANTOPRAZOLE 40 MG TABLET PO SCH (09:43)
[2021-04-12] MEDS: methylPREDNISolone NA SUCC 40 MG/1 ML VIAL IVPUSH SCH ×4 (09:43→21:08)
[2021-04-12] MEDS: CEFTRIAXONE 1 GM in DEXTROSE 5%-WATER - 50 ML IVPB SCH (09:43)
[2021-04-12] MEDS: FOLIC ACID 1 MG TABLET (FP) PO SCH (09:44)
[2021-04-12] MEDS: FLUTICASONE/UMECLIDIN/VILANTER(200-62.5-25 TRELEGY ELLIPTA) INAHLER IH SCH (09:53)
[2021-04-12] MEDS: FUROSEMIDE 40 MG/4 ML INJECTABLE VIAL IVPUSH SCH (10:27)
[2021-04-12] MEDS: SODIUM ZIRCONIUM CYCLOSILICATE (LOKELMA) 5 GM PACKET PO SCH (10:51)
[2021-04-12] MEDS: PATIENT'S OWN MEDICATION (NON-FORMULARY) (Raloxifene Hcl [Raloxifene Hcl] 60 MG) PO SCH (11:28)
[2021-04-12 11:36] VITALS: BMI 26.2
[2021-04-12] MEDS ORDERED: PT OWN MED DRAWER 7, Y5N ONE (19:59)
[2021-04-12] MEDS: LATANOPROST 0.005% OPHTH SOLN 2.5ML BOTTLE OU SCH (21:13)
[2021-04-13] MEDS: methylPREDNISolone NA SUCC 40 MG/1 ML VIAL IVPUSH SCH ×3 (05:58→21:54)
[2021-04-13] MEDS: DOCUSATE SODIUM 100 MG CAPSULE (FP) PO SCH ×3 (06:14→21:54)
[2021-04-13] MEDS: INSULIN SLIDING SCALE (NOVOLOG) 1 VIAL SQ SCH ×4 (07:35→21:54)
[2021-04-13] MEDS: ALBUTEROL SO4 0.083% IH SOL 2.5 MG/3 ML VIAL.NEB. NEB SCH ×4 (08:11→20:21)
[2021-04-13] MEDS: PANTOPRAZOLE 40 MG TABLET PO SCH (09:16)
[2021-04-13] MEDS: ASPIRIN/DIPYRIDAMOLE 25 MG/200 MG CAPSULE PO SCH ×2 (09:16→21:54)
[2021-04-13] MEDS: FUROSEMIDE 40 MG TABLET (FP) PO SCH (09:16)
[2021-04-13] MEDS: amLODIPine BESYLATE 2.5 MG TABLET (FP) PO SCH (09:17)
[2021-04-13] MEDS: CHOLECALCIFEROL (VIT D3) 1,000 UNIT (25 MCG) TABLET PO SCH (09:17)
[2021-04-13] MEDS: FLUTICASONE/UMECLIDIN/VILANTER(200-62.5-25 TRELEGY ELLIPTA) INAHLER IH SCH (09:17)
[2021-04-13] MEDS: MULTIVITAMINS (DAILY MVI) TABLET (FP) PO SCH (09:18)
[2021-04-13] MEDS: FOLIC ACID 1 MG TABLET (FP) PO SCH (09:18)
[2021-04-13] MEDS: POLYETHYLENE GLYCOL (HEALTHYLAX) 3350 17 GM PACKET PO SCH (09:18)
[2021-04-13] MEDS: PATIENT'S OWN MEDICATION (NON-FORMULARY) (Raloxifene Hcl [Raloxifene Hcl] 60 MG) PO SCH (09:19)
[2021-04-13] MEDS ORDERED: methylPREDNISolone NA SUCC 40 MG/1 ML VIAL IVPUSH SCH (10:00)
[2021-04-13] MEDS ORDERED: INSULIN (NOVOLOG) ASPART 100 UNITS/ML 10ML VIAL ONE (18:01)
[2021-04-13] MEDS: LATANOPROST 0.005% OPHTH SOLN 2.5ML BOTTLE OU SCH (22:00)
[2021-04-14] MEDS: methylPREDNISolone NA SUCC 40 MG/1 ML VIAL IVPUSH SCH ×2 (06:40→21:38)
[2021-04-14] MEDS: DOCUSATE SODIUM 100 MG CAPSULE (FP) PO SCH ×3 (06:40→21:36)
[2021-04-14] MEDS: INSULIN SLIDING SCALE (NOVOLOG) 1 VIAL SQ SCH ×4 (06:44→22:01)
[2021-04-14 08:13] LABS: HEMATOCRIT 28.1 % (32.4-45.2); HEMOGLOBIN 9.2 GM/dL (10.7-15.3); MCH 36.5 pg (25.7-33.7); MCHC 32.6 g/dl (32.0-36.0); MEAN CELL VOLUME 112.1 fl (80-96); MEAN PLT VOLUME 9.7 fl (7.5-11.1); PLATELET COUNT 158 10^3/uL (134-434); RBC 2.51 M/mm3 (3.60-5.2); WHITE BLOOD COUNT 27.4 K/mm3 (4.0-10.0)
[2021-04-14 08:17] LABS: CALCIUM 8.5 mg/dL (8.5-10.1)
[2021-04-14 08:18] LABS: MAGNESIUM 2.4 mg/dL (1.8-2.4)
[2021-04-14 08:20] LABS: CREATININE 1.3 mg/dL (0.55-1.3)
[2021-04-14 08:21] LABS: BILIRUBIN,TOTAL 0.3 mg/dL (0.2-1)
[2021-04-14 08:24] LABS: TOT PROT 4.7 g/dl (6.4-8.2)
[2021-04-14] MEDS: ALBUTEROL SO4 0.083% IH SOL 2.5 MG/3 ML VIAL.NEB. NEB SCH ×4 (08:40→20:38)
[2021-04-14] MEDS: FUROSEMIDE 40 MG TABLET (FP) PO SCH (09:25)
[2021-04-14] MEDS: CHOLECALCIFEROL (VIT D3) 1,000 UNIT (25 MCG) TABLET PO SCH (09:25)
[2021-04-14] MEDS: POLYETHYLENE GLYCOL (HEALTHYLAX) 3350 17 GM PACKET PO SCH (09:25)
[2021-04-14] MEDS: PANTOPRAZOLE 40 MG TABLET PO SCH (09:25)
[2021-04-14] MEDS: MULTIVITAMINS (DAILY MVI) TABLET (FP) PO SCH (09:25)
[2021-04-14 09:26] LABS: ANISOCYTOSIS 2+; MACROCYTOSIS 2+; PLATELET ESTIMATE DECREASED
[2021-04-14] MEDS: FOLIC ACID 1 MG TABLET (FP) PO SCH (09:26)
[2021-04-14] MEDS: ASPIRIN/DIPYRIDAMOLE 25 MG/200 MG CAPSULE PO SCH ×2 (09:26→21:34)
[2021-04-14] MEDS: PATIENT'S OWN MEDICATION (NON-FORMULARY) (Raloxifene Hcl [Raloxifene Hcl] 60 MG) PO SCH (09:27)
[2021-04-14] MEDS: FLUTICASONE/UMECLIDIN/VILANTER(200-62.5-25 TRELEGY ELLIPTA) INAHLER IH SCH (09:27)
[2021-04-14] MEDS: amLODIPine BESYLATE 2.5 MG TABLET (FP) PO SCH (09:27)
[2021-04-14] MEDS ORDERED: METOPROLOL TARTRATE 25 MG TABLET (FP) PO ONE (18:12)
[2021-04-14] MEDS: METOPROLOL TARTRATE 25 MG TABLET (FP) PO SCH (21:37)
[2021-04-14] MEDS: LATANOPROST 0.005% OPHTH SOLN 2.5ML BOTTLE OU SCH (21:52)
[2021-04-15] MEDS: DOCUSATE SODIUM 100 MG CAPSULE (FP) PO SCH ×3 (05:55→22:10)
[2021-04-15] MEDS: INSULIN SLIDING SCALE (NOVOLOG) 1 VIAL SQ SCH ×4 (06:00→22:34)
[2021-04-15] MEDS: ALBUTEROL SO4 0.083% IH SOL 2.5 MG/3 ML VIAL.NEB. NEB SCH ×4 (08:47→20:51)
[2021-04-15] MEDS: PANTOPRAZOLE 40 MG TABLET PO SCH (10:02)
[2021-04-15] MEDS: methylPREDNISolone NA SUCC 40 MG/1 ML VIAL IVPUSH SCH ×2 (10:02→22:11)
[2021-04-15] MEDS: MULTIVITAMINS (DAILY MVI) TABLET (FP) PO SCH (10:02)
[2021-04-15] MEDS: CHOLECALCIFEROL (VIT D3) 1,000 UNIT (25 MCG) TABLET PO SCH (10:02)
[2021-04-15] MEDS: FOLIC ACID 1 MG TABLET (FP) PO SCH (10:02)
[2021-04-15] MEDS: amLODIPine BESYLATE 2.5 MG TABLET (FP) PO SCH (10:02)
[2021-04-15] MEDS: POLYETHYLENE GLYCOL (HEALTHYLAX) 3350 17 GM PACKET PO SCH (10:02)
[2021-04-15] MEDS: FUROSEMIDE 40 MG TABLET (FP) PO SCH (10:02)
[2021-04-15] MEDS: METOPROLOL TARTRATE 25 MG TABLET (FP) PO SCH ×2 (10:02→22:10)
[2021-04-15] MEDS: ASPIRIN/DIPYRIDAMOLE 25 MG/200 MG CAPSULE PO SCH ×2 (10:03→22:10)
[2021-04-15] MEDS: PATIENT'S OWN MEDICATION (NON-FORMULARY) (Raloxifene Hcl [Raloxifene Hcl] 60 MG) PO SCH (10:04)
[2021-04-15] MEDS: FLUTICASONE/UMECLIDIN/VILANTER(200-62.5-25 TRELEGY ELLIPTA) INAHLER IH SCH (10:10)
[2021-04-15 12:39] LABS: HEMATOCRIT 28.2 % (32.4-45.2); HEMOGLOBIN 9.3 GM/dL (10.7-15.3); MCH 37.4 pg (25.7-33.7); MCHC 33.1 g/dl (32.0-36.0); MEAN CELL VOLUME 113.1 fl (80-96); MEAN PLT VOLUME 9.7 fl (7.5-11.1); PLATELET COUNT 167 10^3/uL (134-434); WHITE BLOOD COUNT 18.8 K/mm3 (4.0-10.0)
[2021-04-15 12:59] LABS: ALBUMIN 2.2 g/dl (3.4-5.0); BLOOD UREA NITROGEN 34.4 mg/dL (7-18); CALCIUM 8.5 mg/dL (8.5-10.1)
[2021-04-15 13:00] LABS: MAGNESIUM 2.3 mg/dL (1.8-2.4)
[2021-04-15 13:02] LABS: CREATININE 1.3 mg/dL (0.55-1.3)
[2021-04-15 13:04] LABS: BILIRUBIN,TOTAL 0.3 mg/dL (0.2-1); TOT PROT 4.9 g/dl (6.4-8.2)
[2021-04-15 13:51] LABS: ANISOCYTOSIS 1+; MACROCYTOSIS 0; PLATELET ESTIMATE NORMAL
[2021-04-15] MEDS ORDERED: PT OWN MED DRAWER 7, Y5N ONE (21:45)
[2021-04-15] MEDS: LATANOPROST 0.005% OPHTH SOLN 2.5ML BOTTLE OU SCH (22:34)
[2021-04-16] MEDS: INSULIN SLIDING SCALE (NOVOLOG) 1 VIAL SQ SCH ×2 (06:09→11:26)
[2021-04-16] MEDS: DOCUSATE SODIUM 100 MG CAPSULE (FP) PO SCH ×2 (06:10→13:58)
[2021-04-16 08:39] VITALS: BP 101/56; PULSE 90; TEMP 98.3
[2021-04-16] MEDS ORDERED: PT OWN MED DRAWER 7, Y5N ONE ×2 (09:33→15:46)
[2021-04-16] MEDS ORDERED: predniSONE 20 MG TABLET (UD) PO SCH (10:00)
[2021-04-16] MEDS: POLYETHYLENE GLYCOL (HEALTHYLAX) 3350 17 GM PACKET PO SCH (10:10)
[2021-04-16] MEDS: CHOLECALCIFEROL (VIT D3) 1,000 UNIT (25 MCG) TABLET PO SCH (10:11)
[2021-04-16] MEDS: FOLIC ACID 1 MG TABLET (FP) PO SCH (10:11)
[2021-04-16] MEDS: PANTOPRAZOLE 40 MG TABLET PO SCH (10:11)
[2021-04-16] MEDS: METOPROLOL TARTRATE 25 MG TABLET (FP) PO SCH (10:11)
[2021-04-16] MEDS: MULTIVITAMINS (DAILY MVI) TABLET (FP) PO SCH (10:11)
[2021-04-16] MEDS: ASPIRIN/DIPYRIDAMOLE 25 MG/200 MG CAPSULE PO SCH (10:12)
[2021-04-16] MEDS: FUROSEMIDE 40 MG TABLET (FP) PO SCH (10:12)
[2021-04-16] MEDS: amLODIPine BESYLATE 2.5 MG TABLET (FP) PO SCH (10:12)
[2021-04-16] MEDS: PATIENT'S OWN MEDICATION (NON-FORMULARY) (Raloxifene Hcl [Raloxifene Hcl] 60 MG) PO SCH (10:13)
[2021-04-16] MEDS: FLUTICASONE/UMECLIDIN/VILANTER(200-62.5-25 TRELEGY ELLIPTA) INAHLER IH SCH (10:14)
[2021-04-16 13:17] LABS: HEMATOCRIT 29.1 % (32.4-45.2); HEMOGLOBIN 9.5 GM/dL (10.7-15.3); MCH 36.8 pg (25.7-33.7); MCHC 32.8 g/dl (32.0-36.0); MEAN CELL VOLUME 112.3 fl (80-96); PLATELET COUNT 150 10^3/uL (134-434); RBC 2.59 M/mm3 (3.60-5.2); RDW 21.1 % (11.6-15.6)
[2021-04-16 13:25] LABS: CALCIUM 8.8 mg/dL (8.5-10.1)
[2021-04-16 13:26] LABS: ALBUMIN 2.3 g/dl (3.4-5.0); BLOOD UREA NITROGEN 38.5 mg/dL (7-18); MAGNESIUM 2.5 mg/dL (1.8-2.4)
[2021-04-16 13:29] LABS: CREATININE 1.3 mg/dL (0.55-1.3)
[2021-04-16 13:31] LABS: BILIRUBIN,TOTAL 0.3 mg/dL (0.2-1); TOT PROT 5.2 g/dl (6.4-8.2)
[2021-04-16 13:54] LABS: ANISOCYTOSIS 2+; MACROCYTOSIS 2+; PLATELET ESTIMATE DECREASED
== END 2021-04-16 16:13 | disposition home or self-care (01) | DRG 191 ==
LOC: JER 14:33 → JERBED 20:15 → J6S 04-03 09:14 → JICU 04-08 19:58 → J4W 04-10 21:03
PROVIDERS: ADMIT Internal Medicine; ATTEND Nurse Practitioner Acute Care
DX: J44.1 Chronic obstructive pulmonary disease with (acute) exacerbation (principal); J96.11 Chronic respiratory failure with hypoxia; N17.9 Acute kidney failure, unspecified; K92.2 Gastrointestinal hemorrhage, unspecified; N39.0 Urinary tract infection, site not specified; R65.10 Systemic inflammatory response syndrome (SIRS) of non-infectious origin without acute organ dysfunction; I10 Essential (primary) hypertension; I71.9 Aortic aneurysm of unspecified site, without rupture; N28.1 Cyst of kidney, acquired; E87.5 Hyperkalemia; D64.9 Anemia, unspecified; I12.9 Hypertensive chronic kidney disease with stage 1 through stage 4 chronic kidney disease, or unspecified chronic kidney disease; R91.1 Solitary pulmonary nodule; N18.9 Chronic kidney disease, unspecified; R00.0 Tachycardia, unspecified; I71.2 Thoracic aortic aneurysm, without rupture; D72.829 Elevated white blood cell count, unspecified; I51.89 Other ill-defined heart diseases; E66.9 Obesity, unspecified; Z68.25 Body mass index [BMI] 25.0-25.9, adult; Z90.5 Acquired absence of kidney; Z99.81 Dependence on supplemental oxygen
CPT/HCPCS: 36415; 71045-TC-FY; 71250-TC; 74176-TC; 76775-TC; 80053; 80061; 81003; 82550; 82553; 82607; 82746; 82962; 83036; 83540; 83550; 83605; 83735; 83880; 84100; 84436; 84439; 84443; 84445; 84481; 85025; 85610; 86376; 86850; 86900; 86901; 86922; 87040; 87086; 93005; 93010; 93306-TC; 94010; 94640; 97116-GP; 97162-GP; 99285-25; C9803; J1644; U0003; U0005

== ENCOUNTER 2021-04-21 22:00 | Inpatient (IN) | payer OTHER ==
[2021-04-22 01:48] LABS: BASO % 0.1 % (0-2.0); EOS % 0.1 % (0-4.5); HEMATOCRIT 29.3 % (32.4-45.2); HEMOGLOBIN 9.4 GM/dL (10.7-15.3); LYMPH % 9.8 % (8-40); MCH 36.1 pg (25.7-33.7); MCHC 32.2 g/dl (32.0-36.0); MEAN CELL VOLUME 112.2 fl (80-96); MEAN PLT VOLUME 9.3 fl (7.5-11.1); PLATELET COUNT 113 10^3/uL (134-434); RBC 2.61 M/mm3 (3.60-5.2); RDW 20.7 % (11.6-15.6); WHITE BLOOD COUNT 14.4 K/mm3 (4.0-10.0)
[2021-04-22 02:04] LABS: ALBUMIN 2.2 g/dl (3.4-5.0); CALCIUM 8.3 mg/dL (8.5-10.1)
[2021-04-22] MEDS ORDERED: POTASSIUM CHLORIDE TABS 20 MEQ TABLET.ER (FP) PO ONE ×2 (02:05→03:29)
[2021-04-22 02:06] LABS: CREATININE 1.8 mg/dL (0.55-1.3)
[2021-04-22 02:08] LABS: BILIRUBIN,TOTAL 0.4 mg/dL (0.2-1); TOT PROT 5.2 g/dl (6.4-8.2)
[2021-04-22] MEDS ORDERED: ACETAMINOPHEN 325 MG TABLET (FP) PO PRN (03:28)
[2021-04-22] MEDS ORDERED: SODIUM CHLORIDE 1,000 ML IV SCH (03:30)
[2021-04-22] MEDS ORDERED: ALBUTEROL SO4 HFA INHALER IH PRN (03:39)
[2021-04-22 04:45] LABS: MAGNESIUM 2.1 mg/dL (1.8-2.4)
[2021-04-22] MEDS ORDERED: HEPARIN NA (PORCINE) 5,000 UNITS/ML 1ML VIAL SQ SCH (06:00)
[2021-04-22] MEDS: DOCUSATE SODIUM 100 MG CAPSULE (FP) PO SCH ×3 (06:24→21:17)
[2021-04-22] MEDS: KCL 10 MEQ IVPB 10 MEQ/100 ML INFUS.BAG IVPB SCH (06:24)
[2021-04-22 07:24] LABS: ANISOCYTOSIS 2+; MACROCYTOSIS 3+
[2021-04-22] MEDS: METOPROLOL TARTRATE 25 MG TABLET (FP) PO SCH ×3 (11:00→21:32)
[2021-04-22] MEDS: PANTOPRAZOLE 40 MG TABLET PO SCH (11:00)
[2021-04-22] MEDS: POLYETHYLENE GLYCOL (HEALTHYLAX) 3350 17 GM PACKET PO SCH (11:00)
[2021-04-22] MEDS: predniSONE 20 MG TABLET (UD) PO SCH (11:00)
[2021-04-22] MEDS: FLUTICASONE/UMECLIDIN/VILANTER(200-62.5-25 TRELEGY ELLIPTA) INAHLER IH SCH (11:00)
[2021-04-22 18:41] LABS: HEMOGLOBIN 9.7 GM/dL (10.7-15.3); MCH 37.1 pg (25.7-33.7); MCHC 33.2 g/dl (32.0-36.0); MEAN CELL VOLUME 111.6 fl (80-96); PLATELET COUNT 106 10^3/uL (134-434); RDW 20.5 % (11.6-15.6); WHITE BLOOD COUNT 9.4 K/mm3 (4.0-10.0)
[2021-04-22 19:02] LABS: CALCIUM 8.4 mg/dL (8.5-10.1)
[2021-04-22 19:03] LABS: BLOOD UREA NITROGEN 33.6 mg/dL (7-18); MAGNESIUM 2.3 mg/dL (1.8-2.4)
[2021-04-22 19:06] LABS: CREATININE 1.5 mg/dL (0.55-1.3); PHOSPHOROUS 3.1 mg/dL (2.5-4.9)
[2021-04-22] MEDS: POTASSIUM CHLORIDE TABS 20 MEQ TABLET.ER (FP) PO SCH (21:17)
[2021-04-23] MEDS: DOCUSATE SODIUM 100 MG CAPSULE (FP) PO SCH ×3 (06:00→22:30)
[2021-04-23] MEDS: FLUTICASONE/UMECLIDIN/VILANTER(200-62.5-25 TRELEGY ELLIPTA) INAHLER IH SCH (10:59)
[2021-04-23] MEDS: PANTOPRAZOLE 40 MG TABLET PO SCH (10:59)
[2021-04-23] MEDS: POLYETHYLENE GLYCOL (HEALTHYLAX) 3350 17 GM PACKET PO SCH (10:59)
[2021-04-23] MEDS: POTASSIUM CHLORIDE TABS 20 MEQ TABLET.ER (FP) PO SCH ×2 (10:59→22:30)
[2021-04-23] MEDS: METOPROLOL TARTRATE 25 MG TABLET (FP) PO SCH ×3 (10:59→22:51)
[2021-04-23] MEDS: ALBUTEROL SO4 0.083% IH SOL 2.5 MG/3 ML VIAL.NEB. NEB SCH ×3 (11:35→20:05)
[2021-04-23] MEDS: methylPREDNISolone NA SUCC 40 MG/1 ML VIAL IVPUSH SCH ×2 (11:48→17:38)
[2021-04-23] MEDS: predniSONE 20 MG TABLET (UD) PO SCH (11:48)
[2021-04-23] MEDS: INSULIN SLIDING SCALE (NOVOLOG) 1 VIAL SQ SCH (22:50)
[2021-04-24] MEDS: methylPREDNISolone NA SUCC 40 MG/1 ML VIAL IVPUSH SCH ×3 (02:37→17:35)
[2021-04-24] MEDS ORDERED: SODIUM CHLORIDE 250 ML IV STA (03:15)
[2021-04-24] MEDS: DOCUSATE SODIUM 100 MG CAPSULE (FP) PO SCH ×3 (07:33→21:57)
[2021-04-24] MEDS: INSULIN SLIDING SCALE (NOVOLOG) 1 VIAL SQ SCH ×4 (07:44→22:05)
[2021-04-24] MEDS: ALBUTEROL SO4 0.083% IH SOL 2.5 MG/3 ML VIAL.NEB. NEB SCH ×4 (08:49→19:45)
[2021-04-24] MEDS: POTASSIUM CHLORIDE TABS 20 MEQ TABLET.ER (FP) PO SCH ×2 (10:22→21:57)
[2021-04-24] MEDS: POLYETHYLENE GLYCOL (HEALTHYLAX) 3350 17 GM PACKET PO SCH (10:22)
[2021-04-24] MEDS: METOPROLOL TARTRATE 25 MG TABLET (FP) PO SCH ×2 (10:22→21:57)
[2021-04-24] MEDS: PANTOPRAZOLE 40 MG TABLET PO SCH (10:22)
[2021-04-24] MEDS ORDERED: PT OWN MED DRAWER 7, Y5N ONE (12:04)
[2021-04-24] MEDS: FLUTICASONE/UMECLIDIN/VILANTER(200-62.5-25 TRELEGY ELLIPTA) INAHLER IH SCH (12:05)
[2021-04-24] MEDS ORDERED: INSULIN (NOVOLOG) ASPART 100 UNITS/ML 10ML VIAL ONE (20:51)
[2021-04-25 00:01] VITALS: BMI 25.9
[2021-04-25] MEDS: methylPREDNISolone NA SUCC 40 MG/1 ML VIAL IVPUSH SCH ×3 (02:00→22:27)
[2021-04-25] MEDS: DOCUSATE SODIUM 100 MG CAPSULE (FP) PO SCH ×3 (06:00→22:17)
[2021-04-25] MEDS: INSULIN SLIDING SCALE (NOVOLOG) 1 VIAL SQ SCH ×4 (06:03→22:26)
[2021-04-25] MEDS: ALBUTEROL SO4 0.083% IH SOL 2.5 MG/3 ML VIAL.NEB. NEB SCH ×4 (08:22→19:39)
[2021-04-25] MEDS: POTASSIUM CHLORIDE TABS 20 MEQ TABLET.ER (FP) PO SCH ×2 (12:43→22:17)
[2021-04-25] MEDS: PANTOPRAZOLE 40 MG TABLET PO SCH (12:43)
[2021-04-25] MEDS: FLUTICASONE/UMECLIDIN/VILANTER(200-62.5-25 TRELEGY ELLIPTA) INAHLER IH SCH (12:43)
[2021-04-25] MEDS: POLYETHYLENE GLYCOL (HEALTHYLAX) 3350 17 GM PACKET PO SCH (12:43)
[2021-04-25] MEDS: METOPROLOL TARTRATE 25 MG TABLET (FP) PO SCH ×2 (12:43→22:18)
[2021-04-26] MEDS: DOCUSATE SODIUM 100 MG CAPSULE (FP) PO SCH ×3 (05:32→21:39)
[2021-04-26] MEDS: INSULIN SLIDING SCALE (NOVOLOG) 1 VIAL SQ SCH ×4 (06:01→21:39)
[2021-04-26] MEDS: ALBUTEROL SO4 0.083% IH SOL 2.5 MG/3 ML VIAL.NEB. NEB SCH ×4 (08:31→20:20)
[2021-04-26 08:59] LABS: BASO % 0.1 % (0-2.0); EOS % 1.1 % (0-4.5); HEMATOCRIT 27.5 % (32.4-45.2); HEMOGLOBIN 9.1 GM/dL (10.7-15.3); LYMPH % 46.7 % (8-40); MCH 38.1 pg (25.7-33.7); MCHC 32.9 g/dl (32.0-36.0); MEAN CELL VOLUME 115.7 fl (80-96); MONO % 1.2 % (3.8-10.2); NEUT % 50.9 % (42.8-82.8); PLATELET COUNT 55 10^3/uL (134-434); RBC 2.38 M/mm3 (3.60-5.2); RDW 21.1 % (11.6-15.6); WHITE BLOOD COUNT 3.6 K/mm3 (4.0-10.0)
[2021-04-26 09:15] LABS: ALBUMIN 2.1 g/dl (3.4-5.0); CALCIUM 8.7 mg/dL (8.5-10.1)
[2021-04-26 09:18] LABS: CREATININE 1.2 mg/dL (0.55-1.3)
[2021-04-26 09:19] LABS: TOT PROT 4.8 g/dl (6.4-8.2)
[2021-04-26 09:20] LABS: BILIRUBIN,TOTAL 0.6 mg/dL (0.2-1)
[2021-04-26] MEDS: FLUTICASONE/UMECLIDIN/VILANTER(200-62.5-25 TRELEGY ELLIPTA) INAHLER IH SCH (10:12)
[2021-04-26] MEDS: methylPREDNISolone NA SUCC 40 MG/1 ML VIAL IVPUSH SCH (10:13)
[2021-04-26] MEDS: METOPROLOL TARTRATE 25 MG TABLET (FP) PO SCH ×2 (10:13→21:38)
[2021-04-26] MEDS: POLYETHYLENE GLYCOL (HEALTHYLAX) 3350 17 GM PACKET PO SCH (10:13)
[2021-04-26] MEDS: POTASSIUM CHLORIDE TABS 20 MEQ TABLET.ER (FP) PO SCH ×2 (10:13→21:38)
[2021-04-26] MEDS: PANTOPRAZOLE 40 MG TABLET PO SCH (10:13)
[2021-04-26 10:23] LABS: ANISOCYTOSIS 2+; MACROCYTOSIS 2+; PLATELET ESTIMATE DECREASED
[2021-04-26] MEDS: predniSONE 20 MG TABLET (UD) PO SCH (21:38)
[2021-04-27] MEDS: DOCUSATE SODIUM 100 MG CAPSULE (FP) PO SCH ×3 (05:32→21:03)
[2021-04-27] MEDS: INSULIN SLIDING SCALE (NOVOLOG) 1 VIAL SQ SCH ×4 (06:01→21:01)
[2021-04-27] MEDS: ALBUTEROL SO4 0.083% IH SOL 2.5 MG/3 ML VIAL.NEB. NEB SCH ×4 (08:50→20:09)
[2021-04-27 10:05] LABS: MAGNESIUM 2.5 mg/dL (1.8-2.4)
[2021-04-27] MEDS: PANTOPRAZOLE 40 MG TABLET PO SCH (11:26)
[2021-04-27] MEDS: predniSONE 20 MG TABLET (UD) PO SCH ×2 (11:27→21:02)
[2021-04-27] MEDS: POLYETHYLENE GLYCOL (HEALTHYLAX) 3350 17 GM PACKET PO SCH (11:27)
[2021-04-27] MEDS: POTASSIUM CHLORIDE TABS 20 MEQ TABLET.ER (FP) PO SCH ×2 (11:27→21:02)
[2021-04-27] MEDS: FLUTICASONE/UMECLIDIN/VILANTER(200-62.5-25 TRELEGY ELLIPTA) INAHLER IH SCH (11:34)
[2021-04-27] MEDS: METOPROLOL TARTRATE 25 MG TABLET (FP) PO SCH ×2 (11:43→21:03)
[2021-04-27 22:54] VITALS: BP 121/69; PULSE 104; TEMP 98.7
== END 2021-04-27 11:00 | DRG 191 ==
LOC: JER 22:00 → JERBED 23:25 → J6S 04-22 05:33 → J8W 04-24 00:05
PROVIDERS: ATTEND Nurse Practitioner Acute Care
DX: J44.1 Chronic obstructive pulmonary disease with (acute) exacerbation (principal); J96.11 Chronic respiratory failure with hypoxia; N17.9 Acute kidney failure, unspecified; D64.9 Anemia, unspecified; F43.22 Adjustment disorder with anxiety; D69.6 Thrombocytopenia, unspecified; I12.9 Hypertensive chronic kidney disease with stage 1 through stage 4 chronic kidney disease, or unspecified chronic kidney disease; N18.9 Chronic kidney disease, unspecified; R73.9 Hyperglycemia, unspecified; I71.9 Aortic aneurysm of unspecified site, without rupture; R53.1 Weakness; L25.9 Unspecified contact dermatitis, unspecified cause; R62.7 Adult failure to thrive; Z68.25 Body mass index [BMI] 25.0-25.9, adult; Z90.5 Acquired absence of kidney; Z99.81 Dependence on supplemental oxygen
CPT/HCPCS: 36415; 71045-TC-FY; 74230-TC-FY; 80048; 80053; 82272; 82550; 82962; 83735; 84100; 84484; 85025; 85027; 86140; 92611-GN; 93005; 93010; 94640; 97116-GP; 97162-GP; 99285-25; C9803; U0003; U0005